=== PATIENT | female | born 1960 | race American Indian/Alaskan Native ===

== ENCOUNTER 2018-08-17 11:28 | Day surgery (SDC) | payer OTHER ==
[2018-08-17] MEDS ORDERED: XYLOCAINE MPF 2% ONE (11:30)
[2018-08-17] MEDS ORDERED: WATER FOR IRRIG STERILE ONE (12:29)
[2018-08-17] MEDS ORDERED: WATER FOR IRRIG STERILE IR ONE ×2 (12:29→20:07)
[2018-08-17] MEDS ORDERED: NACL 0.9% 1000 ML 1,000 ML IV SCH (13:00)
[2018-08-17] MEDS ORDERED: DIPRIVAN 10 MG/ML IV ONE ×3 (13:09→13:52)
--- NOTE | 2018-08-17 13:46 | Operative Report ---
Operative Report Operative Report: Date of procedure: 08/17/2018 Procedure: Colonoscopy with cold snare polypectomy, Multiple Hot Biopsy Polypectomies. Ablation of multiple polyps. Attending physician: Clark Dubose MD [employer] Att[employer] Supervisor: Clark Dubose MD Indication: Patient is a 58-year-old female who presents for screening colonoscopy. This colonoscopy serves to evaluate patient so that treatment may be directed based on the findings. Consent: Informed consent was obtained after advising the patient and family regarding nature of this procedure, its indications, potential benefits as well as possible complications including but not limited to bleeding perforation and adverse reaction to medication, infection as well as other cardiopulmonary complications. An informed written and verbal consent was then obtained after due opportunity was provided for questions and answers. Monitoring: Patient was monitored continuously with pulse oximetry and electrocardiographic recordings as well as blood pressure recordings. Vital signs remained stable throughout this procedure with no untoward events. Preoperative assessment: Patient was assessed immediately prior to this procedure for capacity to tolerate monitored anesthesia care and moderate sedation as well as general anesthesia. Patient's ASA classification is 2, Mallampati class is 2, Hyomental distance is 3. Instrument: [employer] video colonoscope Medications: Propofol given intravenously in divided doses. For details please refer to anesthesia records. Description of procedure: Patient was placed in the left lateral decubitus position after achieving sedation, a digital rectal examination was performed following which the colonoscope was introduced into the anal verge and advanced to the cecum which was identified by the cecal valve, the appendiceal orifice, as well as by the cecal strap and direct transillumination. The colonoscope was subsequently withdrawn with careful inspection of all mucosal surfaces. Patient tolerated this procedure well and was subsequently taken to the recovery room. The following findings were noted. Findings: Patient had multiple diminutive flat polyps in the sigmoid colon. 7 of this polyps removed by hot biopsy polypectomy. 2 polyps in the rectum p were ablated. The preparation was suboptimal. The rectum and the sigmoid colon was vigorously irrigated as much as possible to achieve visualization. Still however there were densely adherent stool particles and thick liquid stool in various sections of the colon. In the ascending colon, patient had a 8 mm polyp. This was removed with a cold snare polypectomy. The specimen was retrieved. There were areas of density at stool in the ascending colon and the cecum. There were no other mucosal abnormalities. On the retroflex view of the anal verge, patient had prominent internal hemorrhoids. Impression: Rectal polyp status post ablation. Sigmoid colon polyps status post hot biopsy polypectomy Ascending colon polyp status post cold snare polypectomy Retained stool. Internal hemorrhoids. Plan: Follow pathology report. High-fiber diet. Repeat colonoscopy in 6 months to 1 year course of the findings of multiple polyps, poor colonoscopic preparation . Patient may benefit from hemorrhoidal band ligation in the future.
--- NOTE | 2018-08-17 13:47 | Anesthesia Consultation ---
Anesthesia Consult and Med Hx Date of service: 08/17/18 - Airway Anesthetic Teeth Evaluation: Good ROM Head & Neck: Adequate Mental/Hyoid Distance: Adequate Mallampati Class: Class II Intubation Access Assessment: Probably Good - Pulmonary Exam CTA: Yes - Cardiac Exam Cardiac Exam: RRR - Pre-Operative Health Status ASA Pre-Surgery Classification: ASA3 Proposed Anesthetic Plan: MAC - Cardiovascular System Hx Hypertension: Yes Hx Heart Murmur: Yes - Central Nervous System Hx Back Pain: Yes - Endocrine Hx Non-Insulin Dependent Diabetes: Yes - Other Systems Hx Obesity: Yes
--- NOTE | 2018-08-17 13:47 | Discharge Summary ---
Short Stay Discharge Plan Activity: advance as tolerated Weight Bearing Status: Weight Bear as Tolerated Diet: regular Follow up with: ANTONIETA NUNEZ IV, MD [Other] - 7 Days
--- NOTE | 2018-08-17 13:47 | Anesthesia Day of Surgery ---
Anesthesia Day of Surgery - Day of Surgery Patient Examined: Yes Patient H&P Reviewed: Yes Patient is NPO: Yes
[2018-08-17 14:34] VITALS: BP 135/79
== END 2018-08-17 11:29 | disposition home or self-care (01) ==
LOC: GIO 11:28
PROVIDERS: ATTEND Internal Medicine Gastroenterology
DX: Z12.11 Encounter for screening for malignant neoplasm of colon (principal); D12.2 Benign neoplasm of ascending colon; D12.5 Benign neoplasm of sigmoid colon; K64.8 Other hemorrhoids; E11.9 Type 2 diabetes mellitus without complications; F32.9 Major depressive disorder, single episode, unspecified; I10 Essential (primary) hypertension; E66.9 Obesity, unspecified; Z68.37 Body mass index [BMI] 37.0-37.9, adult; Z98.51 Tubal ligation status; Z90.710 Acquired absence of both cervix and uterus; Z98.891 History of uterine scar from previous surgery; Z98.890 Other specified postprocedural states; Z79.01 Long term (current) use of anticoagulants; Z79.899 Other long term (current) drug therapy
CPT/HCPCS: 45384; 45385; 45388; 88305; J2704; J7030